=== PATIENT | female | born 1960 | race Caucasian/White ===

== ENCOUNTER 2019-11-17 10:45 | Emergency (ER) | payer SELFPAY ==
[~2019-11-17] VITALS: Ht 154.9 cm; Wt 45.4 kg
--- NOTE | 2019-11-17 10:50 | NUR ---
JESSE Sullivan FROM HOME C/O ANXIETY AND INVOLUNTARY TWITCHING PER EMS, PATIENT NON-VERBAL. TO ER BED 12, HOOKED TO MONITOR, CHANGED TO HOSP GOWN, WARM BLANKET PROVIDED. AWAITING MD LOZANO.
--- NOTE | 2019-11-17 10:52 | NUR ---
DR AVENDAÑO AT BEDSIDE
[2019-11-17] MEDS ORDERED: LORAZEPAM INJ 2 MG/ML VIAL ONE (10:59)
[2019-11-17] MEDS ORDERED: LORAZEPAM INJ 2 MG/ML VIAL IM ONE ×2 (11:00→12:30)
[2019-11-17 11:16] LABS: BASOPHILS % (AUTO) 0.4 % (0.0-2.0); EOSINOPHILS % (AUTO) 1.1 % (0.0-6.0); HEMATOCRIT 38 % (33-45); HEMOGLOBIN 12.6 g/dL (11.5-14.8); LYMPHOCYTES # (AUTO) 1.5 /CMM (0.8-4.8); LYMPHOCYTES % (AUTO) 22.9 % (20.0-44.0); MEAN CORPUSCULAR HGB CONC 33 g/dl (31.0-36.0); MEAN CORPUSCULAR VOLUME 89 fL (82-100); MONOCYTES # (AUTO) 0.4 /CMM (0.1-1.30); NEUTROPHILS # (AUTO) 4.4 /CMM (1.8-8.9); NEUTROPHILS % (AUTO) 68.6 % (43.0-81.0); PLATELET COUNT (AUTO) 380 /CMM (150-450); RED BLOOD CELL COUNT(AUTO) 4.25 MIL/uL (4.0-5.2); WHITE BLOOD COUNT (AUTO) 6.4 K/uL (4.3-11.0)
[2019-11-17 11:34] LABS: BILIRUBIN,DIRECT 0.1 mg/dL (0.0-0.2); BILIRUBIN,TOTAL 0.5 mg/dL (0.2-1.0); CALCIUM, SERUM 8.9 mg/dL (8.5-10.1); CARBON DIOXIDE 29 mmol/L (21-32); CHLORIDE 106 mmol/L (98-107); CREATININE 0.7 mg/dL (0.6-1.3); GLUCOSE 104 mg/dL (74-106); POTASSIUM 3.5 mmol/L (3.5-5.1); SODIUM SERUM 142 mmol/L (136-145); UREA NITROGEN, BLOOD 21 mg/dL (7-18)
[2019-11-17 11:35] LABS: ACETAMINOPHEN < 2 ug/ml (10-30); ALANINE AMINOTRANSFERASE 17 U/L (12-78); ALBUMIN 3.8 g/dL (3.4-5.0); ALCOHOL, BLOOD < 3 mg/dL (0-0); ALKALINE PHOSPHATASE 82 U/L (46-116); ASPARTATE AMINOTRANSFERASE 26 U/L (15-37); SALICYLATE 0.2 mg/dL (2.8-20.0); TOTAL PROTEIN, SERUM 7.6 g/dL (6.4-8.2)
[2019-11-17 13:42] LABS: APPEARANCE,URINE CLOUDY (CLEAR); BILIRUBIN,URINE NEGATIVE (NEGATIVE); BLOOD, URINE TRACE-INTA Ery/uL (NEGATIVE); COLOR,URINE YELLOW (YELLOW); KETONES,URINE NEGATIVE (NEGATIVE); LEUKOCYTE ESTERASE ,URINE NEGATIVE (NEGATIVE); NITRITE, URINE NEGATIVE (NEGATIVE); PROTEIN,URINE NEGATIVE (NEGATIVE); UGLUCOSE NEGATIVE (NEGATIVE); UROBILINOGEN,URINE 0.2 EU/dL (0.2)
[2019-11-17 14:02] LABS: BACTERIA,URINE Rare /HPF (None Seen); RBC,URINE 0-2 /HPF (0-2); SQUAMOUS EPITHELIAL CELL,UR Few /HPF (None Seen); URINE AMORPHOUS PHOSPHATES Moderate /HPF (None Seen); WBC,URINE 0-2 /HPF (0-3)
--- NOTE | 2019-11-17 14:46 | NUR ---
Referral made to Healthcare Corporate Account Director Bhakti for possible discharge (No family/no contact info) pt un-communicative, inappropriate to questions.
--- NOTE | 2019-11-17 15:00 | NUR ---
Tried to ambulate w/EMT assistance ([place]) unstable/risk for fall-MD made aware
--- NOTE | 2019-11-17 17:00 | NUR ---
PT NOT ANSWERING QUESTIONS APPROPRIETLY, UNSAFE FOR DISCHARGE AT THIS TIME. VS UPDATED, -SOB, NAD NOTED
--- NOTE | 2019-11-17 18:40 | NUR ---
pt cont to monitor, pt sleeping at this time, -sob, not in any distress.
--- NOTE | 2019-11-17 20:35 | NUR ---
Patient is resting comfortably in bed with eyes closed. Easily aroused. VSS
--- NOTE | 2019-11-18 01:23 | NUR ---
Patient is resting comfortably in bed with eyes closed. Easily aroused. VSS
--- NOTE | 2019-11-18 02:15 | NUR ---
PT AWAKE. AAOX4. AMBULATORY WITH STEADY GAIT.
[2019-11-18 02:23] VITALS: BP 119/74
--- NOTE | 2019-11-18 02:23 | NUR ---
Patient discharged to home in stable condition. Written and verbal after care instructions given. Patient verbalizes understanding of instruction.Pt ambulatory with a steady gait
== END 2019-11-18 02:24 | disposition home or self-care (01) ==
LOC: ER 10:50
DX: F41.9 Anxiety disorder, unspecified (principal); G25.3 Myoclonus
CPT/HCPCS: 36415; 70450; 80048; 80076; 80305; 80307; 80329; 81001; 85025; 96372; 99285; G0480; J2060; 81000-TC